=== PATIENT | female | born 1990 | race Hispanic/Latino ===

== ENCOUNTER 2021-01-25 10:38 | Inpatient (IN) | payer MEDICAID, OTHER ==
[~2021-01-25] VITALS: Ht 152.4 cm; Wt 92.5 kg
[~2021-01-25 10:38] MED LIST: FERS325 PO; IBUP-2088 PO
[2021-01-25 11:22] LABS: APPEARANCE,URINE Clear (CLEAR); BILIRUBIN,URINE Negative (NEGATIVE); COLOR,URINE Yellow (YELLOW); GLUCOSE, URINE (UA) Negative (NEGATIVE); KETONES,URINE Negative (NEGATIVE); LEUKOCYTE ESTERASE ,URINE Negative (NEGATIVE); NITRATE,URINE Negative (NEGATIVE); OCCULT BLOOD,URINE Negative (NEGATIVE); PROTEIN,URINE Negative (NEGATIVE); UROBILINOGEN,URINE 0.2 mg/dL (0.2-1.0)
[2021-01-25] MEDS ORDERED: OXYTOCIN-LR 20 UNITS/1000 ML 1,000 ML IV SCH ×2 (11:45→13:00)
[2021-01-25] MEDS ORDERED: LACTATED RINGERS 1000ML 1,000 ML IV PRN (11:45)
[2021-01-25 12:05] LABS: HEMATOCRIT 32.9 % (36-48); MEAN CORPUSCULAR HEMOGLOBIN 27.2 pg (27.0-33.0); MEAN CORPUSCULAR HGB CONC 32.5 g/dL (32.0-36.0); MEAN CORPUSCULAR VOLUME 83.5 fL (79-99); RED BLOOD CELL COUNT(AUTO) 3.94 MIL/uL (4.00-5.50); RED CELL DISTRIBUTION WIDTH 13.9 % (11.0-15.5); WHITE BLOOD COUNT (AUTO) 13.6 K/uL (4.8-10.8)
[2021-01-25] MEDS ORDERED: LIDOCAINE HCL 1% 20 ML VIAL ONE (12:46)
[2021-01-25] MEDS ORDERED: BUTORPHANOL TARTRATE 2 MG/ML ONE (12:59)
[2021-01-25] MEDS ORDERED: BUTORPHANOL TARTRATE 2 MG/ML IVP ONE (14:15)
[2021-01-25] MEDS ORDERED: LANOLIN 30GM OINTMENT TP PRN (16:45)
[2021-01-25] MEDS ORDERED: WITCH HAZEL 1 PAD TP PRN (16:45)
[2021-01-25] MEDS ORDERED: DIPH,PERTUSS(ACELL),TET VAC/PF 0.5 ML VIAL IM PRN (16:45)
[2021-01-25] MEDS ORDERED: MEASLES/MUMPS/RUBELLA VACCINE, LIVE 0.5 ML/VIAL SQ PRN (16:45)
[2021-01-25] MEDS ORDERED: BENZOCAINE/LANOLIN/ALOE VERA 60 ML AEROSOL TP PRN (16:45)
[2021-01-25] MEDS ORDERED: ACETAMINOPHEN WITH CODEINE 1 TAB TAB PO PRN (16:45)
[2021-01-25] MEDS ORDERED: ACETAMINOPHEN 325 MG TAB PO PRN (16:45)
[2021-01-25 16:47] VITALS: BP 101/51
[2021-01-25] MEDS ORDERED: PNV1TABL17 PO (19:05)
[2021-01-25] MEDS: IBUPROFEN 600 MG TABLET PO PRN (19:28)
[2021-01-25 19:37] VITALS: BP 105/51
[2021-01-25] MEDS: DOCUSATE SODIUM 100 MG CAP PO SCH (20:47)
[2021-01-25 23:36] VITALS: BP 88/55
[2021-01-26 04:10] VITALS: BP 105/52
[2021-01-26 06:54] LABS: HEMATOCRIT 30.1 % (36-48); MEAN CORPUSCULAR HEMOGLOBIN 26.1 pg (27.0-33.0); MEAN CORPUSCULAR HGB CONC 31.2 g/dL (32.0-36.0); MEAN CORPUSCULAR VOLUME 83.6 fL (79-99); RED BLOOD CELL COUNT(AUTO) 3.6 MIL/uL (4.00-5.50); RED CELL DISTRIBUTION WIDTH 13.7 % (11.0-15.5)
[2021-01-26 07:15] VITALS: BP 103/44
[2021-01-26 08:14] LABS: HEPATITIS Bs ANTIGEN SCREEN P Negative (Negative)
[2021-01-26] MEDS: DOCUSATE SODIUM 100 MG CAP PO SCH (09:05)
[2021-01-26] MEDS: IBUPROFEN 600 MG TABLET PO PRN (09:06)
[2021-01-26 11:55] VITALS: BP 103/57
== END 2021-01-26 16:15 | disposition home or self-care (01) | DRG 807 ==
LOC: EDH 10:38 → OBSVTOIN 10:39 → LDH 10:39 → WSH 16:55
PROVIDERS: ADMIT Obstetrics & Gynecology; ATTEND Obstetrics & Gynecology
PROC: 10E0XZZ Delivery of Products of Conception, External Approach (ICD-10-PCS; principal; 2021-01-25)
PROC: 10907ZC Drainage of Amniotic Fluid, Therapeutic from Products of Conception, Via Natural or Artificial Opening (ICD-10-PCS; 2021-01-25)
PROC: 3E0234Z Introduction of Serum, Toxoid and Vaccine into Muscle, Percutaneous Approach (ICD-10-PCS; 2021-01-25)
PROC: 3E0134Z Introduction of Serum, Toxoid and Vaccine into Subcutaneous Tissue, Percutaneous Approach (ICD-10-PCS; 2021-01-25)
PROC: 3E0234Z Introduction of Serum, Toxoid and Vaccine into Muscle, Percutaneous Approach (ICD-10-PCS; 2021-01-26)
DX: O69.2XX0 Labor and delivery complicated by other cord entanglement, with compression, not applicable or unspecified (principal); Z37.0 Single live birth; Z3A.37 37 weeks gestation of pregnancy; Z67.11 Type A blood, Rh negative; Z23 Encounter for immunization
CPT/HCPCS: 36415; 81003; 83033; 85027; 86592; 86701; 86850; 86900; 86901; 87340; 87390; A4351; G0378; J0595; J2590; J2791; J7120